=== PATIENT | male | born 1980 | race Caucasian/White ===

== ENCOUNTER → 2019-11-03 15:17 | Outpatient (CLI) | payer OTHER, SELFPAY ==
--- NOTE | 2019-11-03 15:22 | XR_ITS ---
PROCEDURE: XR CHEST 2V CLINICAL HISTORY: COUGH Cough, shortness of air COMPARISON: CXR CHEST(2 VIEWS-NOT PORTABLE) from 07/24/2015 [id number] VIEWS from 09/03/2016 FINDINGS: The cardiomediastinal silhouette and pulmonary vascularity are within normal limits. There is dense consolidation in the right middle lobe consistent with right middle lobe pneumonia. No obvious effusion. An opacity is present in the left perihilar region at measuring 1 cm and could be due to a developing nodule. Follow-up is suggested. Summation artifact or patchy area of pneumonia also is a consideration. No acute bony abnormalities. IMPRESSION: 1. Dense consolidation in the right middle lobe consistent with pneumonia. 2. Left perihilar opacity which could be related to developing nodule, summation artifact, or focal infiltrate. Follow-up recommended. If this persists then, CT with contrast may be needed for further evaluation Dictated by: Jose Rafael Saldana MD 11/03/2019 16:37 Electronically signed by Jose Rafael Saldana MD in [place] 11/03/2019 16:37
== END ==
PROVIDERS: PCP Nurse Practitioner; Visit Provider Nurse Practitioner
DX: R05 Cough (principal)
CPT/HCPCS: 71046

== ENCOUNTER → 2019-12-22 14:59 | Outpatient (CLI) | payer OTHER, SELFPAY ==
[2019-12-22 15:56] LABS: Basophils # 0.1 K/mm3 (0-0.2); Basophils % 0.3 % (0.1-2.0); Chloride 99 mmol/L (98-107); Eosinophils # 0.1 K/mm3 (0.0-0.4); Eosinophils % 0.4 % (0.1-12.0); Hematocrit 44.7 % (42.0-52.0); Hemoglobin 14.8 g/dL (14.1-18.0); Lymphocytes % 13.5 % (10-50); Mean Corpuscular HGB Conc 33.1 g/dL (31.8-35.4); Mean Corpuscular Hemoglobin 29.6 pg (27.0-31.2); Mean Corpuscular Volume 89.3 fl (80-94); Mean Platelet Volume 8.3 fl (7.4-10.4); Monocytes # 1.2 K/mm3 (0.1-1.0); Monocytes % 7.6 % (1.7-9.3); Neutrophils # 11.8 K/mm3 (1.8-7.8); Neutrophils % 78.3 % (37.0-80.0); Platelet Count 320 K/mm3 (142-424); Sodium 137 mmol/L (136-145); White Blood Count 15.1 K/mm3 (4.8-10.8)
[2019-12-22 15:57] LABS: MANUAL DIFFERENTIAL MANUAL DIFFERENTIAL (MANUAL DIFF)
[2019-12-22 15:59] LABS: Alanine Aminotransferase 33 U/L (12-78); Albumin Level 4.6 g/dl (3.5-5.0); Albumin/Globulin Ratio 1.2 (1.1-1.8); Alkaline Phosphatase 98 U/L (38-126); Aspartate Amino Transferase 30 U/L (17-59); Blood Urea Nitrogen 11 mg/dl (9-20); Calcium 9.2 mg/dl (8.4-10.2); Carbon Dioxide 29 mmol/L (22.0-30.0); Estimated Glomerular Filt Rate 83 ml/min (>60); GFR (African American) 101 ML/MIN (>60); Glucose 92 mg/dl (74-100); Total Protein,Serum 8.6 g/dl (6.3-8.2)
[2019-12-22 17:42] LABS: Lymphocytes % 16 % (10-50); Monocytes % 8 % (2-9); Neutrophils % 76 % (42-76); Platelet Estimate Normal; RBC Morphology Normal; Total Cells Counted 100
[2020-01-03 07:25] LABS: Covid-19 Nasal PCR Sendout Lex Not Detected (Not Detected)
--- NOTE | 2020-01-05 09:10 | PC.NURSE ---
0908 Cristin KAMINSKI, NOTIFIED OF NEGATIVE COVID RESULTS 0910 PT NOTIFIED OF NEGATIVE COVID TEST RESULTS
== END ==
PROVIDERS: Visit Provider Nurse Practitioner Family
DX: R50.9 Fever, unspecified (principal); R05 Cough
CPT/HCPCS: 36415; 80053; 85007; 85025

== ENCOUNTER → 2019-12-23 13:55 | Outpatient (CLI) | payer OTHER, SELFPAY ==
--- NOTE | 2019-12-23 14:07 | XR_ITS ---
PROCEDURE: XR CHEST AP CLINICAL HISTORY: COUGH, LEUKOCYTOSIS,FEVER COMPARISON: CXR CHEST(2 VIEWS-NOT PORTABLE) from 07/24/2015 XR CHEST 2V from 11/03/2019 FINDINGS: The cardiomediastinal silhouette and pulmonary vascularity are within normal limits. There is continued consolidation in the right middle lobe consistent with pneumonia which appears somewhat worse. Previously noted opacity in the left perihilar region is not demonstrated on today's exam. No acute bony abnormalities. IMPRESSION: Increasing consolidation in the right middle lobe consistent with worsening pneumonia Dictated by: Jose Rafael Saldana MD 12/23/2019 14:53 Electronically signed by Jose Rafael Sladana MD in [place] 12/23/2019 14:53
== END ==
PROVIDERS: PCP Nurse Practitioner Family; Visit Provider Nurse Practitioner Family
DX: R50.9 Fever, unspecified (principal); R05 Cough; D72.829 Elevated white blood cell count, unspecified
CPT/HCPCS: 71045

== ENCOUNTER → 2020-08-31 15:53 | Outpatient (POV) | payer OTHER, SELFPAY | PROVIDERS: Visit Provider Dermatology | DX: Z00.00 Encounter for general adult medical examination without abnormal findings (principal) ==

== ENCOUNTER 2021-04-02 13:25 | Emergency (ER) | payer OTHER, SELFPAY ==
[2021-04-02 13:40] VITALS: BP 147/95; PULSE 105; RESP 18; TEMP 36.6; O2SAT 97; BMI 33.0
--- NOTE | 2021-04-02 13:42 | HMH.EDUTC ---
[facility] [place] Clinical Impression: Sinusitis Qualifiers: Sinusitis location: maxillary Chronicity: acute Recurrence: non-recurrent Qualified Code(s): J01.00 - Acute maxillary sinusitis, unspecified Disposition: Home, Self-Care Condition on Discharge: Good Instructions: DI for Sinusitis Additional Instructions: Follow up with Dr Ragsdale if not improving Prescriptions: Amoxicillin [Amoxicillin 875MG Tab] 875 mg PO Q12H #20 tab Transmission Status: Pending to [facility] # predniSONE [Prednisone 20mg Tab] 20 mg PO BID 5 Days #10 tab Transmission Status: Pending to [facility] # Referrals: Casper Ragsdale MD [Primary Care Provider] - Time of Disposition: 13:51 Medical Decision Making - Nicholas Inquiry Pt receiving controlled substance: No [facility] [place] - General Stated complaint: drainage,some throat irritation Time Seen by Provider: 04/02/21 13:43 - History of Present Illness Provider Complaint: 3-4 day history of sinus pain/pressure/drainage. No fever. Onset (ago): day(s) (4) Relieving factors: none Exacerbating factors: none Treatments prior to arrival: none - Related Data Previous Rx's Medication Instructions Recorded sulfamethoxazole 800 1 tab PO Q12H 10 Days #20 tab 07/14/20 mg-trimethoprim 160 mg tablet Amoxicillin [Amoxicillin 875MG 875 mg PO Q12H #20 tab 04/02/21 Tab] predniSONE [Prednisone 20mg 20 mg PO BID 5 Days #10 tab 04/02/21 Tab] Allergies Allergy/AdvReac Type Severity Reaction Status Date / Time No Known Allergies Allergy Verified 07/14/20 15:55 [facility] History - Hepatitis A Screen Attestation statement:: This patient has been screened for Hepatitis A risk factors. I have reviewed the patient's past medical history: Yes Medical History: Denies:: Diabetes Mellitus Type 2, Seizures Laterality Cases: Bilateral: Tonsillectomy Other Surgeries: Yes: Other Comment: Pilonidial cyst removal 2009 - Social History Smoking Status: Never smoker Alcohol Intake: current Alcohol Intake Frequency:: holidays/special occasions only Substance Use Type: denies use Occupational Status: employed Household Members: spouse, children Family Hx:: Non-contributory ROS Obtained: Yes All systems reviewed & no additional complaints - ENT Ears, Nose, Mouth, and Throat: Reports sinus pain, Reports sinus pressure Physical Exam - General General appearance: alert, in no apparent distress - Head Head exam: atraumatic, normocephalic, normal inspection - Eye Eye exam: Present: normal appearance, PERRL, EOMI - ENT ENT exam: Present: normal exam, normal oropharynx, mucous membranes moist, TM's normal bilaterally, normal external ear exam - Expanded ENT Exam Nose exam: Present: sinus tenderness Throat exam: Present: other (PND) - Neck Neck exam: Present: normal inspection, full ROM, trachea midline. Absent: meningismus, lymphadenopathy - Chest Chest inspection: Present: normal inspection, symmetric chest wall rise. Absent: tenderness - Respiratory Respiratory exam: Present: normal lung sounds bilaterally. Absent: respiratory distress - Cardiovascular Cardiovascular exam: Present: regular rate, normal rhythm. Absent: JVD - Abdominal Exam Abdominal exam: Present: soft, normal bowel sounds. Absent: distention, tenderness, guarding - Extremities Exam Extremities exam: Present: normal inspection, full ROM, normal capillary refill. Absent: calf tenderness - Back Exam Back exam: Present: normal inspection. Absent: tenderness - Neurological Exam Neurological exam: Present: alert, oriented X3 - Psychiatric Psychiatric exam: Present: normal affect, normal mood - Skin Skin exam: Present: warm, dry, intact, normal color - Lymphatic Lymphatic Findings: no adenopathy
[2021-04-02 13:56] VITALS: BP 139/92; PULSE 98; RESP 16; TEMP 36.6
[2021-04-02 13:56] LABS: UTC Strep Screen (Rapid) Negative (Negative)
== END 2021-04-02 14:00 | disposition home or self-care (01) ==
PROVIDERS: Emergency Provider Physician Assistant; PCP Family Medicine
DX: J01.00 Acute maxillary sinusitis, unspecified (principal)
CPT/HCPCS: 87880; 99202; G0463

== ENCOUNTER → 2021-05-31 16:08 | Outpatient (POV) | payer OTHER, SELFPAY | PROVIDERS: Visit Provider Dermatology | DX: Z00.00 Encounter for general adult medical examination without abnormal findings (principal) ==

== ENCOUNTER 2021-06-06 09:36 | Emergency (ER) | payer OTHER, SELFPAY ==
[2021-06-06 09:40] VITALS: BP 152/96; PULSE 83; RESP 18; TEMP 36.9; O2SAT 96; BMI 33.0
--- NOTE | 2021-06-06 10:39 | HMH.EDUTC ---
[facility] [place] Impression: Sinusitis Qualifiers: Sinusitis location: unspecified location Chronicity: unspecified Qualified Code(s): J32.9 - Chronic sinusitis, unspecified Disposition: Home, Self-Care Condition on Discharge: Good Instructions: Sinusitis, DI for Sinusitis, DI for COVID-19 (Suspected or Confirmed ), Preventing the Spread of Coronavirus Discharge Instructions Additional Instructions: *Monitor Temp, Over the counter Motrin or Tylenol as directed/as needed Tylenol every 4 hours and Motrin every 6 hours (as long as your family doctor has told you that you can take it) for fever or pain. and straight to ER if unable to lower temp less than 101.0 after medication given *Warm salt water gargles may help to soothe the throat *Throat Lozenges *Warm fluids like tea with honey may help to soothe the throat *Sleep elevated *Humidifier/Vaporizer *Bromfed may cause drowsiness. Know how it effects you (your child) before driving, caring for small child, or sending your child to school. Not other antihistamines/allergy medications while taking bromfed Follow up IMMEDIATELY for new or worsening symptoms or no Noticeable improvement over the next 48-72 hours. 911 for difficulty breathing or swallowing You were tested for today for COVID19 your test result should be back in the next 24-48 hours, You was given instructions to check on [facility] for your results if you do not have internet access you may call the [facility] You was given a handout with instructions for Self Quarantine and Self isolation for while you wait on test results and what to do if they are positive If you are positive the Health Dept will be contacting you also Make sure to take your Vitamins Vit. C Vit D and Zinc if you can take them Prescriptions: Brompheniramine/Pseudoephed/Dm [Bromfed Dm Cough Syrup] 5 - 10 ml PO Q46H PRN #200 ml PRN Reason: Cough Transmission Status: Pending to [facility] # methylPREDNISolone [Medrol 4mg tab] 4 mg PO DIRECTED #21 tab Transmission Status: Pending to [facility] # Azithromycin [Z-Shree 250mg Tab] 250 mg PO DIRECTED #6 tab Transmission Status: Pending to [facility] #[id number] Referrals: Casper Ragsdale MD [Primary Care Provider] - As needed Forms: Work/School Release Time of Disposition: 10:57 Medical Decision Making - Nicholas Inquiry Pt receiving controlled substance: No Nicholas was queried for this patient: No Vital Signs: 06/06/21 09:40 Temperature 98.4 F Temperature Source Oral Pulse Rate [Right Brachial] 83 Respiratory Rate 18 Blood Pressure [Right Arm] 152/96 H Blood Pressure Mean [Right Arm] 114 Blood Pressure Source [Right Arm] Automatic Cuff Blood Pressure Position [Right Arm] Sitting 02 Sat by Pulse Oximetry 96 Oxygen Delivery Method Room Air [facility] [place] - General Stated complaint: covid test/symtpoms Time Seen by Provider: 06/06/21 10:39 Mode of Arrival: Ambulatory Source of Information: Patient Limitations: No Limitations Description of Symptoms (Recalled from Triage Doc. by RN): PATIENT C/O SINUS PRESSURE AND LOW-GRADE FEVER THAT STARTED LAST NIGHT. 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
[2021-06-06 10:52] VITALS: BP 152/96; PULSE 83; RESP 18; TEMP 36.9; O2SAT 96
== END 2021-06-06 11:03 | disposition home or self-care (01) ==
PROVIDERS: Emergency Provider Nurse Practitioner; PCP Family Medicine
DX: U07.1 COVID-19 (principal)
CPT/HCPCS: 99202; G0463; U0003

== ENCOUNTER 2021-06-15 09:05 | Emergency (ER) | payer OTHER, SELFPAY ==
[2021-06-15] VITALS (7 sets, daily range): BP systolic 133–160; BP diastolic 80–91; PULSE 57–82; RESP 16–20; TEMP 36.4; O2SAT 94–97; BMI 31.5
--- NOTE | 2021-06-15 09:03 | ECG_ITS ---
APPROVED REPORT Exam: Resting ECG HR:66 bpm ECG Measurements Heart Rate 66 AXES KS 152 P 46 QRSd 96 QRS 35 QT 402 T 25 QTc 421 Conclusion Normal sinus rhythm Normal ECG Electronically signed by : Casper Webb MD 06/15/2021 20:40:30
--- NOTE | 2021-06-15 09:09 | XR_ITS ---
PROCEDURE: XR CHEST PORTABLE CLINICAL HISTORY: covid COMPARISON: CR CXR CHEST(2 VIEWS-NOT PORTABLE) from 07/24/2015 CR XR CHEST 2V from 11/03/2019 CR XR CHEST AP from 12/23/2019 FINDINGS: The cardiomediastinal silhouette and pulmonary vascularity are within normal limits. There is an area of consolidation in the right infrahilar region. The remaining lungs are clear. No acute bony abnormalities. IMPRESSION: Parenchymal opacity in the right infrahilar region 6 x 2 cm. This could be due to an area atelectatic change or scarring as the patient had a right middle lobe pneumonia on an older study of 12/23/2019. No follow-up images are available since that exam. An area of pneumonia or even neoplasm would be included in the differential diagnosis. This finding is not typical for Covid19 pneumonia. Otherwise negative Dictated by: Jose Rafael Saldana MD 06/15/2021 09:41 Jose Rafael Saldana MD in [place] 06/15/2021 09:41
--- NOTE | 2021-06-15 09:10 | HMH.EDGENADL ---
ED Disposition Clinical Impression: COVID, Palpitations Disposition: Home, Self-Care Condition on Discharge: Good Referrals: Casper Ragsdale MD [Primary Care Provider] - 3 days Time of Disposition: 10:01 - Critical Care Critical Care Time: No Attestation: On , the high probability of a clinically significant, sudden or life threatening deterioration of the following system(s) required my full and direct attention, intervention and personal management. The time I documented below is in addition to time spent performing reported procedures but includes the following listed in this critical care notation. Medical Decision Making - Medical Records Medical records reviewed: Yes: I reviewed the patient's medical records. - Nicholas Inquiry Pt receiving controlled substance: No Vital Signs: 06/15/21 09:05 06/15/21 09:30 06/15/21 10:00 Temperature 97.6 F Temperature Source Oral Pulse Rate 64 59 L Pulse Rate [Right Radial] 73 Respiratory Rate 16 18 20 Blood Pressure 141/88 H 146/80 H Blood Pressure [Right Arm] 160/91 H Blood Pressure Mean 105 98 Blood Pressure Mean [Right Arm] 114 Blood Pressure Source [Right Arm] Automatic Cuff Blood Pressure Position [Right Arm] Sitting 02 Sat by Pulse Oximetry 97 95 94 L Oxygen Delivery Method Room Air 06/15/21 10:30 06/15/21 11:00 06/15/21 11:30 Temperature Temperature Source Pulse Rate 62 57 L 66 Pulse Rate [Right Radial] Respiratory Rate 19 18 16 Blood Pressure 141/87 H 139/89 133/89 Blood Pressure [Right Arm] Blood Pressure Mean 105 99 100 Blood Pressure Mean [Right Arm] Blood Pressure Source [Right Arm] Blood Pressure Position [Right Arm] 02 Sat by Pulse Oximetry 96 96 96 Oxygen Delivery Method - Lab Data Lab Results 06/15/21 09:20: WBC 1.8 L*, RBC 7.88 H, Hgb 24.3 H*, Hct 72.6 H*, MCV 92.2, MCH 30.8, MCHC 33.5, RDW 12.4, Plt Count 75 L, MPV 6.6 L, Neut % (Auto) 49.7, Lymph % (Auto) 42.9, [place] % (Auto) 5.8, Eos % (Auto) 0.6, Baso % (Auto) 1.0, Neut # (Auto) 0.9 L*, Lymph # (Auto) 0.8, [place] # (Auto) 0.1, Eos # (Auto) 0.0, Baso # (Auto) 0.0 06/15/21 09:20: Sodium 137, Potassium 4.1, Chloride 100, Carbon Dioxide 29, Anion Gap 12.1, BUN 8 L, Creatinine 0.90, Estimated Creat Clear 154, Estimated GFR 93, Est GFR ( Amer) 113, Glucose 104 H, Calcium 8.8, Total Bilirubin 0.6, AST 46, ALT 65, Alkaline Phosphatase 125, Troponin I < 0.01, Total Protein 8.2, Albumin 4.3, Globulin 3.9 H, Albumin/Globulin Ratio 1.1 06/15/21 11:23: WBC 4.3 L D, RBC 4.95 D, Hgb 14.8 D, Hct 44.8, MCV 90.5, MCH 30.3, MCHC 33.5, RDW 12.2, Plt Count 296 D, MPV 6.8 L, Neut % (Auto) 61.8, Lymph % (Auto) 29.1, [place] % (Auto) 7.4, Eos % (Auto) 1.0, Baso % (Auto) 0.7, Neut # (Auto) 2.7, Lymph # (Auto) 1.3, [place] # (Auto) 0.3, Eos # (Auto) 0.0, Baso # (Auto) 0.0 Result diagrams: 06/15/21 11:23 06/15/21 09:20 Orders (Tests/Meds): ORDERS Category Date Time Status Peripheral Smear Review Stat Lab 06/15/21 11:23 Received Troponin I Q3H Lab 06/15/21 12:15 Ordered Troponin I Q3H Lab 06/15/21 15:15 Ordered - Radiology Data #1 Image(s): Chest Image Reviewed: Yes I reviewed the patient's radiology results Preliminary Findings: Abnormal Parenchymal opacity in the right infrahilar region 6 x 2 cm. This could be due to an area atelectatic change or scarring as the patient had a right middle lobe pneumonia on an older study of 12/23/2019. No follow-up images are available since that exam. An area of pneumonia or even neoplasm would be included in the differential diagnosis. This finding is not typical for Covid19 pneumonia. Otherwise negative - ECG Data Tracing #1 I reviewed this ECG and interpreted as documented below: Normal sinus rhythm, 66 bpm, no ST elevation or depression, no ectopy, normal intervals. ECG initial impression date: 06/15/21 ECG initial impression time: 09:06 Medical Decision Narrative: 40yo M evaluated fo
[2021-06-15 09:40] LABS: Alanine Aminotransferase 65 U/L (12-78); Albumin Level 4.3 g/dl (3.5-5.0); Albumin/Globulin Ratio 1.1 (1.1-1.8); Alkaline Phosphatase 125 U/L (38-126); Anion Gap 12.1 mEq/L (5-15); Aspartate Amino Transferase 46 U/L (17-59); Bilirubin,Total 0.6 mg/dl (0.2-1.3); Blood Urea Nitrogen 8 mg/dl (9-20); Calcium 8.8 mg/dl (8.4-10.2); Carbon Dioxide 29 mmol/L (22.0-30.0); Chloride 100 mmol/L (98-107); Creatinine Clearance Estimated 154 mL/min (50-200); Estimated Glomerular Filt Rate 93 ml/min (>60); GFR (African American) 113 ML/MIN (>60); Globulin 3.9 g/dL (1.3-3.2); Glucose 104 mg/dl (74-100); Potassium 4.1 mmoL/L (3.5-5.1); Sodium 137 mmol/L (136-145); Total Protein,Serum 8.2 g/dl (6.3-8.2)
[2021-06-15 09:52] LABS: Troponin I < 0.01 ng/ml (0.00-0.034)
[2021-06-15 10:00] LABS: Eosinophils % 0.6 % (0.1-12.0); Lymphocytes # 0.8 K/mm3 (0.7-4.5); Lymphocytes % 42.9 % (10-50); Mean Corpuscular HGB Conc 33.5 g/dL (31.8-35.4); Mean Corpuscular Hemoglobin 30.8 pg (27.0-31.2); Mean Corpuscular Volume 92.2 fl (80-94); Mean Platelet Volume 6.6 fl (7.4-10.4); Monocytes # 0.1 K/mm3 (0.1-1.0); Monocytes % 5.8 % (1.7-9.3); Neutrophils # 0.9 K/mm3 (1.8-7.8); Neutrophils % 49.7 % (37.0-80.0); Platelet Count 75 K/mm3 (142-424); Red Cell Distribution Width 12.4 % (11.5-17.5); White Blood Count 1.8 K/mm3 (4.8-10.8)
[2021-06-15 10:25] LABS: Hematocrit 72.6 % (42.0-52.0); Red Blood Count 7.88 M/mm3 (4.60-6.20)
[2021-06-15 10:58] LABS: Hemoglobin 24.3 g/dL (14.1-18.0)
[2021-06-15 11:28] LABS: Basophils % 0.7 % (0.1-2.0); Hematocrit 44.8 % (42.0-52.0); Lymphocytes # 1.3 K/mm3 (0.7-4.5); Lymphocytes % 29.1 % (10-50); Mean Corpuscular HGB Conc 33.5 g/dL (31.8-35.4); Mean Corpuscular Hemoglobin 30.3 pg (27.0-31.2); Mean Corpuscular Volume 90.5 fl (80-94); Mean Platelet Volume 6.8 fl (7.4-10.4); Monocytes # 0.3 K/mm3 (0.1-1.0); Monocytes % 7.4 % (1.7-9.3); Neutrophils # 2.7 K/mm3 (1.8-7.8); Neutrophils % 61.8 % (37.0-80.0); Platelet Count 296 K/mm3 (142-424); Red Blood Count 4.95 M/mm3 (4.60-6.20); Red Cell Distribution Width 12.2 % (11.5-17.5); White Blood Count 4.3 K/mm3 (4.8-10.8)
[2021-06-15 11:46] LABS: Hemoglobin 14.8 g/dL (14.1-18.0)
[2021-06-17 11:24] LABS: Peripheral Smear Review Scanned Result
== END 2021-06-15 13:06 | disposition home or self-care (01) ==
PROVIDERS: Emergency Provider Family Medicine; PCP Family Medicine
DX: U07.1 COVID-19 (principal); R43.9 Unspecified disturbances of smell and taste; R00.2 Palpitations
CPT/HCPCS: 71045; 80053; 84484; 85025; 93005; 99283

== ENCOUNTER 2022-03-03 19:08 | Emergency (ER) | payer OTHER, SELFPAY ==
--- NOTE | 2022-03-03 20:10 | HMH.EDUTC ---
[facility] [place] Impression: Right arm cellulitis Insect bite of right upper arm with infection Qualifiers: Encounter type: initial encounter Qualified Code(s): S40.861A - Insect bite (nonvenomous) of right upper arm, initial encounter Disposition: Home, Self-Care Condition on Discharge: Good Instructions: Cellulitis Additional Instructions: Keep the affected area clean and dry. Follow up with your regular doctor. Take the antibiotics as directed and apply the topical antibiotics as directed. Apply warm wet compresses to the affected area three or four times per day. GO TO THE ER FOR ANY WORSENING SYMPTOMS Follow up with your primary care physician for a wound recheck in 48 hours. Prescriptions: Sulfamethoxazole/Trimethoprim [Bactrim DS tablet] 1 each PO BID 10 Days #20 tab Transmission Status: Received by [facility] #[id number] Mupirocin [Bactroban 2% Ointment 22gm tube] 1 applicatio TP TID 7 Days #1 gm Transmission Status: Received by [facility] #[id number] cephALEXin [cephALEXin 500mg capsule] 500 mg PO Q6H 10 Days #40 cap Transmission Status: Received by [facility] #[id number] Referrals: Kalina Siegel APRN [Primary Care Provider] - Forms: Work/School Release Time of Disposition: 20:39 Medical Decision Making - Medical Records Medical records reviewed: No: I reviewed the patient's medical records. - Nicholas Inquiry Pt receiving controlled substance: No Vital Signs: 03/03/22 20:23 03/03/22 20:57 Temperature 97.6 F 97.6 F Temperature Source Oral Pulse Rate 64 Pulse Rate [Left Radial] 64 Respiratory Rate 17 17 Blood Pressure 123/87 Blood Pressure [Right Arm] 123/87 Blood Pressure Mean [Right Arm] 99 02 Sat by Pulse Oximetry 99 Orders (Tests/Meds): ED MEDICATIONS Discontinued Medications Generic Name Dose Route Start Last Admin Trade Name Freq PRN Reason Stop Dose Admin Ceftriaxone Sodium 1 gm 03/03/22 20:31 03/03/22 20:36 Ceftriaxone 1gm Vial IM 03/03/22 20:32 1 gm ONCE ONE Administration Lidocaine HCl 0 ml 03/03/22 20:31 03/03/22 20:36 Lidocaine 1% 5ml Pf Vial IM 03/03/22 20:32 2 ml ONCE ONE Administration [facility] [place] - General Stated complaint: possible spider bite Time Seen by Provider: 03/03/22 20:10 - History of Present Illness Provider Complaint: He has a red area on the inside of his right arm that started to develope 2 days ago. It has an open area in its center. He denies any fever or chills. He states that this started after he mowed his grass and a bug bit him on his arms. He has had a similar reaction to a bug bite about 10 years ago that got infected and he had to take a rocephin shot and oral antibiotics to get better. He is not a diabetic. - Related Data Previous Rx's Medication Instructions Recorded sulfamethoxazole 800 1 tab PO Q12H 10 Days #20 tab 07/14/20 mg-trimethoprim 160 mg tablet Amoxicillin [Amoxicillin 875MG 875 mg PO Q12H #20 tab 04/02/21 Tab] predniSONE [Prednisone 20mg 20 mg PO BID 5 Days #10 tab 04/02/21 Tab] Azithromycin [Z-Shree 250mg Tab] 250 mg PO DIRECTED #6 tab 06/06/21 Brompheniramine/Pseudoephed/Dm 5 - 10 ml PO Q46H PRN #200 ml 06/06/21 [Bromfed Dm Cough Syrup] methylPREDNISolone [Medrol 4mg 4 mg PO DIRECTED #21 tab 06/06/21 tab] Mupirocin [Bactroban 2% Ointment 1 applicatio TP TID 7 Days #1 gm 03/03/22 22gm tube] Sulfamethoxazole/Trimethoprim 1 each PO BID 10 Days #20 tab 03/03/22 [Bactrim DS tablet] cephALEXin [cephALEXin 500mg 500 mg PO Q6H 10 Days #40 cap 03/03/22 capsule] Allergies Allergy/AdvReac Type Severity Reaction Status Date / Time No Known Allergies Allergy Verified 03/03/22 20:25 [facility] History - Hepatitis A Screen Attestation statement:: This patient has been screened for Hepatitis A risk factors. I have reviewed the patient's past medical history: Yes Medical History: D
[2022-03-03 20:23] VITALS: BP 123/87; PULSE 64; RESP 17; TEMP 36.4; O2SAT 99; BMI 31.2
[2022-03-03 20:57] VITALS: BP 123/87; PULSE 64; RESP 17; TEMP 36.4
== END 2022-03-03 20:57 | disposition home or self-care (01) ==
PROVIDERS: Emergency Provider Nurse Practitioner Family; PCP Nurse Practitioner Family
DX: L03.113 Cellulitis of right upper limb (principal); S40.861A Insect bite (nonvenomous) of right upper arm, initial encounter
CPT/HCPCS: 96372; 99212; G0463; J0696

== ENCOUNTER 2022-09-03 09:54 | Emergency (ER) | payer OTHER, SELFPAY ==
--- NOTE | 2022-09-03 10:36 | EXP.UTC ---
Discharge Plan Disposition Patient Disposition: Home, Self-Care Condition: Good Prescriptions Prescriptions: New azithromycin [Zithromax] 250 mg tablet 250 mg PO UD DOSE PK Qty: 6 0RF Rx Instructions: Take two (2) tablets today, then one (1) tablet days #2 thru #5 benzonatate [benzonatate] 100 mg capsule 100 mg PO TIDP PRN (Reason: Cough) Qty: 30 0RF oseltamivir [Tamiflu] 75 mg capsule 75 mg PO BID Qty: 10 0RF methylprednisolone 4 mg Tablets,Dose Pack 4 mg PO DIRECTED Qty: 21 0RF No Action sulfamethoxazole-trimethoprim 800-160 mg tablet 1 tab PO Q12H 10 Days Qty: 20 0RF prednisone 20 MG tablet 20 mg PO BID 5 Days Qty: 10 0RF amoxicillin 875 MG tablet 875 mg PO Q12H Qty: 20 0RF sulfamethoxazole-trimethoprim 1 EACH tablet 1 each PO BID 10 Days Qty: 20 0RF cephalexin 500 MG capsule 500 mg PO Q6H 10 Days Qty: 40 0RF mupirocin 22 GM ointment 1 applicatio TP TID 7 Days Qty: 1 0RF azithromycin 250 MG tablet 250 mg PO DIRECTED Qty: 6 0RF Rx Instructions: Take two (2) tablets on day #1, then one (1) tablet day #2 thru #5 methylprednisolone 4 MG tablet 4 mg PO DIRECTED Qty: 21 0RF Rx Instructions: Take as directed on package instructions [id number] 118 ML syrup 5 - 10 ml PO Q46H PRN (Reason: Cough) Qty: 200 0RF Referrals Follow up/Referrals: Casper Webb MD [Primary Care Provider] - See instructions Activity Restrictions/Add. Instructions Additional Instructions/Restrictions: Drink plenty of fluids. Take tylenol or ibuprofen for pain or fever. Take the medications as directed. Follow up with your regular doctor. GO TO THE ER FOR ANY WORSENING SYMPTOMS Clinical Impressions Clinical Impression: Influenza A Stand Alone Forms Stand Alone Forms: Work/School Release Instructions Patient Instructions: DI for Influenza -- Adult Discharge ED Provider: [facility] General Stated complaint: Cough,Fever,Congestion,Bodyaches Time Seen by Provider: 09/03/22 10:36 History of Present Illness Provider Complaint: He states that he has had fever, chills, body aches, fatigue and cough for the past 2 days. Related Data Previous Rx's Medication Instructions Recorded sulfamethoxazole 800 1 tab PO Q12H skin infection 10 07/14/20 mg-trimethoprim 160 mg tablet days #20 tabs amoxicillin 875 mg tablet 875 mg PO Q12H #20 tabs 04/02/21 prednisone 20 mg tablet 20 mg PO BID 5 days #10 tabs 04/02/21 azithromycin 250 mg tablet 250 mg PO DIRECTED #6 tabs 06/06/21 clljjbidfkgmngu-lqgdqpranozekex-DL 5 - 10 ml PO Q46H PRN Cough #200 mL 06/06/21 2 mg-30 mg-10 mg/5 mL oral syrup methylprednisolone 4 mg tablet 4 mg PO DIRECTED #21 tabs 06/06/21 cephalexin 500 mg capsule 500 mg PO Q6H 10 days #40 caps 03/03/22 mupirocin 2 % topical ointment 1 applicatio topical TID 7 days ##1 03/03/22 sulfamethoxazole 800 1 each PO BID 10 days #20 tabs 03/03/22 mg-trimethoprim 160 mg tablet azithromycin 250 mg tablet 250 mg PO UD DOSE PK #6 tabs 09/03/22 (Zithromax) benzonatate 100 mg capsule 100 mg PO TIDP PRN Cough #30 caps 09/03/22 methylprednisolone 4 mg tablets in 4 mg PO DIRECTED #21 tabs 09/03/22 a dose pack oseltamivir 75 mg capsule (Tamiflu) 75 mg PO BID #10 caps 09/03/22 Allergies Allergy/AdvReac Type Severity Reaction Status Date / Time No Known Allergies Allergy Verified 09/03/22 10:50 [facility] Disclaimer: The information contained in this section may have been updated after the patient was seen, as this information can be updated by other users. Social History Smoking Status: Never smoker alcohol intake: current substance use type: denies use current occupational status: employed Travel in the last 8 weeks: None household members: spouse and children ROS Obtained: Yes All systems reviewed & no additio
[2022-09-03 10:48] VITALS: BP 127/85; PULSE 107; RESP 16; TEMP 37.2; O2SAT 96; BMI 31.2
[2022-09-03 10:53] LABS: UTC Strep Screen (Rapid) Negative (Negative)
[2022-09-03 10:54] LABS: UTC Influenza A Antigen Positive (Negative); UTC Influenza B Antigen Negative (Negative)
[2022-09-03 11:29] VITALS: BP 127/85; PULSE 107; RESP 16; TEMP 37.2
== END 2022-09-03 11:32 | disposition home or self-care (01) ==
PROVIDERS: Emergency Provider Nurse Practitioner Family; PCP Internal Medicine Adolescent Medicine
DX: J10.1 Influenza due to other identified influenza virus with other respiratory manifestations (principal)
CPT/HCPCS: 87804; 87880; 99212; G0463

== ENCOUNTER → 2023-01-16 16:23 | Outpatient (POV) | payer OTHER, SELFPAY | PROVIDERS: Visit Provider Dermatology | DX: Z00.00 Encounter for general adult medical examination without abnormal findings (principal) ==

== ENCOUNTER → 2023-08-07 15:45 | Outpatient (CLI) | payer OTHER, SELFPAY ==
[2023-08-07 16:34] LABS: Chol/HDL Ratio 7.9 (1-3.5); Cholesterol 236 mg/dl (140-200); HDL Cholesterol 30 mg/dl (40-60); Triglycerides 135 mg/dl (30-150); VLDL Cholesterol 27 mg/dL (0-40)
[2023-08-07 16:45] LABS: Direct LDL Cholesterol 154.77 mg/dL (100-129)
[2023-08-07 16:50] LABS: Free T4 (Free Thyroxine) 0.87 ng/dl (0.78-2.19)
[2023-08-07 17:03] LABS: Thyroid Stimulating Hormone 4.37 uIU/mL (0.465-4.68)
== END ==
PROVIDERS: PCP Internal Medicine Adolescent Medicine; Visit Provider Internal Medicine Adolescent Medicine
DX: Z00.00 Encounter for general adult medical examination without abnormal findings (principal); R53.83 Other fatigue; R94.6 Abnormal results of thyroid function studies
CPT/HCPCS: 36415; 80061; 84439; 84443

== ENCOUNTER 2023-11-14 18:23 | Emergency (ER) | payer BC, SELFPAY ==
[2023-11-14 19:20] VITALS: BP 141/92; PULSE 71; RESP 18; TEMP 36.8; O2SAT 98; BMI 33.4
--- NOTE | 2023-11-14 19:36 | EXP.UTC ---
Discharge Plan Disposition Patient Disposition: Home, Self-Care Condition: Good Prescriptions Prescriptions: New levofloxacin [levofloxacin] 500 mg tablet 500 mg PO DAILY Qty: 7 0RF mupirocin 2 % ointment 1 applic topical TID 7 Days Qty: 15 0RF benzonatate [benzonatate] 100 mg capsule 100 mg PO TIDP PRN (Reason: Cough) Qty: 30 0RF Referrals Follow up/Referrals: Casper Webb MD [Primary Care Provider] - See instructions Activity Restrictions/Add. Instructions Additional Instructions/Restrictions: Drink plenty of fluids. Take tylenol or ibuprofen for pain or fever. Take the medications as directed. Follow up with your regular doctor. GO TO THE ER FOR ANY WORSENING SYMPTOMS Clinical Impressions Clinical Impression: Acute viral syndrome, Bronchitis, Pleurisy Stand Alone Forms Stand Alone Forms: Work/School Release Instructions Patient Instructions: DI for Acute Bronchitis, DI for Pleurisy, DI for Viral Syndrome, Levofloxacin Discharge ED Provider: Kt Hylton [facility] [place], [place] General Stated complaint: exposed to flu-weak,body aches Time Seen by Provider: 11/14/23 19:35 History of Present Illness Provider Complaint: He states that for the past 3 days he has had worsening fatigue, thoracic back pain with coughing and deep breathing, malaise, low grade fever, and weakness. He has been exposed to influenza b. He states that in the past he has had pneumonia that started just like this. Related Data Previous Rx's Medication Instructions Recorded benzonatate 100 mg capsule 100 mg PO TIDP PRN Cough #30 caps 11/14/23 levofloxacin 500 mg tablet 500 mg PO DAILY #7 tabs 11/14/23 mupirocin 2 % topical ointment 1 applic topical TID 7 days #15 11/14/23 grams Allergies Allergy/AdvReac Type Severity Reaction Status Date / Time No Known Allergies Allergy Verified 11/14/23 19:43 [facility] Disclaimer: The information contained in this section may have been updated after the patient was seen, as this information can be updated by other users. Social History Smoking Status: Never smoker alcohol intake: current substance use type: denies use current occupational status: employed Travel in the last 8 weeks: None household members: spouse and children ROS Obtained: Yes All systems reviewed & no additional complaints except as documented Constitutional Constitutional: Reports poor appetite Eyes Eyes: Reports system reviewed and no additional complaints, except as documented ENT Ears, Nose, Mouth, and Throat: Reports as per HPI and Denies neck pain Cardiovascular Cardiovascular: Reports system reviewed and no additional complaints, except as documented and Denies chest pain Respiratory Respiratory: Denies shortness of breath, Reports chest congestion, Reports cough, Denies stridor and Denies wheezing Gastrointestinal Gastrointestingal: Reports system reviewed and no additional complaints, except as documented; Denies abdominal pain, diarrhea or vomiting Genitourinary Male Genitourinary: Denies difficulty urinating and Denies urinary frequency Musculoskeletal Musculoskeletal: Reports as per HPI, Reports back pain and Denies neck pain Integumentary/Breasts Skin/Breast: Reports system reviewed and no additional complaints, except as documented and Denies rash Neurologic Neurologic: Denies paresthesias Allergic/Immunologic Allergic/Immunologic: Denies wheezing Physical Exam General General appearance: alert and in no apparent distress Eye Eye exam: Present normal appearance, PERRL and EOMI ENT ENT exam: Present mucous membranes moist and normal external ear exam Expanded ENT Exam External ear exam: Present normal external inspection TM/Canal exam: Bilateral TM: erythema and bulging Nose exam: Absent sinus tenderness Nasal speculum exam: Bilateral: normal Mouth exam: Present normal external inspection; Absent drooling Teeth exam: Present normal inspection Throat exam: Present tonsillar erythema and tonsillomegaly Neck Neck exam: Present normal inspection, full ROM and trachea midline; Absent tenderness, lymphadenopathy or thyromegaly Chest Chest inspection: Present normal inspection and symmetric chest wall rise; Absent tenderness or rash Respiratory Respiratory exam: Present normal lung sounds bilaterally; Absent respiratory distress, wheezes, stridor or accessory muscle use Cardiovascular Cardiovascular exam: Present regular rate, normal rhythm and normal heart sounds Abdominal Exam Abdominal exam: Present soft; Absent distention, tenderness, guarding, rebound or rigidity Extremities Exam Extremities exam: Present normal inspection, full ROM and normal capillary refill; Absent tenderness or calf tenderness Back Exam Back exam: Present normal inspection and full ROM; Absent tenderness Neurological Exam Neurological exam: Present alert and oriented X3 Psychiatric Psychiatric exam: Present normal affect and normal mood Skin Skin exam: Present warm, dry, intact and normal color Lymphatic Lymphatic Findings: no adenopathy Medical Decision Making Medical Records Medical records reviewed: No I reviewed the patient's medical records. Nicholas Prather Pt receiving controlled substance: No Lab Data Lab results reviewed: Yes I reviewed the patient's lab results.
[2023-11-14 20:05] LABS: UTC Influenza A Antigen Negative (Negative); UTC Strep Screen (Rapid) Negative (Negative)
[2023-11-14 20:06] LABS: UTC Influenza B Antigen Negative (Negative)
[2023-11-14 20:09] VITALS: BP 141/92; PULSE 71; RESP 18; TEMP 36.8; O2SAT 98
[2023-11-14 20:16] LABS: Adenovirus,PCR Not Detected (NotDetected); Coronavirus 19, PCR Not Detected (NotDetected); Coronavirus 229E Not Detected (NotDetected); Coronavirus NL63 Not Detected (NotDetected); Coronavirus OC43 Not Detected (NotDetected); Coronovirus HKU1,PCR Not Detected (NotDetected); Human Metapneumovirus Not Detected (NotDetected); Influenza A, PCR Not Detected (NotDetected); Influenza AH1, 2009 Not Detected (NotDetected); Influenza AH1, PCR Not Detected (NotDetected); Influenza AH3,PCR Not Detected (NotDetected); Influenza B, PCR Not Detected (NotDetected); Parainfluenza 1, PCR Not Detected (NotDetected); Parainfluenza 2, PCR Not Detected (NotDetected); Parainfluenza 3, PCR Not Detected (NotDetected); Parainfluenza 4, PCR Not Detected (NotDetected); Respiratory Syncytial Virus Not Detected (NotDetected); Rhinovirus/Enterovirus Not Detected (NotDetected)
== END 2023-11-14 20:09 | disposition home or self-care (01) ==
PROVIDERS: Emergency Provider Nurse Practitioner Family; PCP Internal Medicine Adolescent Medicine
DX: R09.1 Pleurisy (principal); J20.9 Acute bronchitis, unspecified; R07.1 Chest pain on breathing; R50.9 Fever, unspecified; R05.9 Cough, unspecified; R53.83 Other fatigue
CPT/HCPCS: 87632; 87635; 87804; 87880; 99212; 99214; G0463

== ENCOUNTER 2023-11-18 15:15 | Emergency (ER) | payer BC, SELFPAY ==
[2023-11-18 15:24] VITALS: BP 157/92; PULSE 77; O2SAT 99
[2023-11-18 15:27] VITALS: BP 157/92; PULSE 74; RESP 18; TEMP 36.9; O2SAT 99; BMI 31.4
--- NOTE | 2023-11-18 15:29 | HMH.EDGENADL ---
Discharge Plan Prescriptions Prescriptions: No Action levofloxacin [levofloxacin] 500 mg tablet 500 mg PO DAILY Qty: 7 0RF mupirocin 2 % ointment 1 applic topical TID 7 Days Qty: 15 0RF benzonatate [benzonatate] 100 mg capsule 100 mg PO TIDP PRN (Reason: Cough) Qty: 30 0RF Referrals Follow up/Referrals: Casper Webb MD [Primary Care Provider] - See instructions Discharge ED Provider: Lili Callaway General Adult HPI General Stated complaint: pain in sides and back, abdominal tenderness, fati Time Seen by Provider: 11/18/23 15:23 Related Data Previous Rx's Medication Instructions Recorded benzonatate 100 mg capsule 100 mg PO TIDP PRN Cough #30 caps 11/14/23 levofloxacin 500 mg tablet 500 mg PO DAILY #7 tabs 11/14/23 mupirocin 2 % topical ointment 1 applic topical TID 7 days #15 11/14/23 grams Allergies Allergy/AdvReac Type Severity Reaction Status Date / Time No Known Allergies Allergy Verified 11/14/23 19:43 [facility] Disclaimer: The information contained in this section may have been updated after the patient was seen, as this information can be updated by other users. Social History Smoking Status: Never smoker alcohol intake: current substance use type: denies use current occupational status: employed Travel in the last 8 weeks: None household members: spouse and children ROS Obtained: Yes Systems reviewed as appropriate & no additional complaints except as documented Physical Exam General General appearance: alert and in no apparent distress Head Head exam: atraumatic and normal inspection Eye Eye exam: Present normal appearance, PERRL and EOMI ENT ENT exam: Present normal exam, normal oropharynx and mucous membranes moist Neck Neck exam: Present normal inspection, full ROM and trachea midline; Absent lymphadenopathy Chest Chest inspection: Present normal inspection and symmetric chest wall rise Respiratory Respiratory exam: Present normal lung sounds bilaterally; Absent accessory muscle use Cardiovascular Cardiovascular exam: Present regular rate, normal rhythm, normal heart sounds, +S1 and +S2 Abdominal Exam Abdominal exam: Present soft and normal bowel sounds; Absent tenderness, guarding or rebound Extremities Exam Extremities exam: Present normal inspection and full ROM Neurological Exam Neurological exam: Present alert, oriented X3 and CN II-XII intact Psychiatric Psychiatric exam: Present normal affect and normal mood Skin Skin exam: Present warm, dry and normal color Lymphatic Lymphatic Findings: no adenopathy Medical Decision Making Medical Decision Narrative: In summary patient is a [age, sex] who presents to the emergency department for evaluation of [complaint]. Patient is [hemodynamically stable/unstable] upon arrival, [febrile/afebrile]. [Unremarkable physical exam, nonfocal exam versus focal remarkable exam]. Differential diagnosis includes [DDx]. Initial workup will be conducted with [hematologic labs, imaging, respiratory swab, describe workup]. Initial interventions include [crystalloid bolus, medications, p.o. challenge, etc.] initial workup reviewed by me [hematologic labs are remarkable for... Imaging remarkable for... Urinalysis remarkable for]. Upon repeat evaluation [patient had acceptable resolution of symptoms, had persistent pain for which additional interventions were conducted (describe interventions), tolerated p.o., was ambulatory, etc.]. Given this [patient is appropriate for discharge at this time and will be discharged with a prescription for... The case was discussed with hospital medicine regarding management and they will admit the patient their service for continued evaluation at this time... Etc.] Places where you can increase complexity: I informally interpreted the patient's chest x-ray or CT read and is remarkable for... Documenting what the lunchroom monitor shows with rate and rhythm Consideration of test but deferring. Ex: I considered chest x-ray on this patient however given that they have no oxygen requirement and are clear to auscultation all lung connelly will be deferred. Social determinants of health: Given that patient is undomiciled increases complexity. Given that patient has polysubstance abuse compounds all aspects of care
--- NOTE | 2023-11-18 15:36 | CT_ITS ---
PROCEDURE INFORMATION: Exam: CT Abdomen And Pelvis With Contrast Exam date and time: 11/18/2023 3:47 PM Age: 43 years old Clinical indication: Abdominal pain; Flank; Other: Bilateral; Additional info: Bilateral flank pain, radiating into abd non focal TECHNIQUE: Imaging protocol: Computed tomography of the abdomen and pelvis with contrast. Radiation optimization: All CT scans at this facility use at least one of these dose optimization techniques: automated exposure control; mA and/or kV adjustment per patient size (includes targeted exams where dose is matched to clinical indication); or iterative reconstruction. Contrast material: ISOVUE; Contrast volume: 75 ml; Contrast route: IV; COMPARISON: CR XR CHEST PORTABLE 06/15/2021 9:19 AM FINDINGS: Lungs: Included lung bases demonstrate no consolidation. Right middle lobe 6 mm subpleural nodule. Liver: Liver is normal. No lesions. Gallbladder and bile ducts: Gallbladder is normal. No calcified stones. No ductal dilatation. Pancreas: Pancreas is normal. No ductal dilatation. Spleen: Spleen is normal. Adrenal glands: Adrenal glands are normal. No mass. Kidneys and ureters: Symmetric enhancement with no renal mass. There is a 5 mm non-obstructing stone in the right kidney and two 3 mm non-obstructing stones in the left kidney. No hydronephrosis or hydroureter. Stomach and bowel: No evidence of bowel obstruction or acute bowel abnormality. Mild colonic diverticulosis without evidence of diverticulitis. Appendix: No evidence of appendicitis. Intraperitoneal space: No free air. No significant fluid collection. Vasculature: No acute abnormality. No abdominal aortic aneurysm. Pelvic phleboliths. Lymph nodes: No enlarged lymph nodes. Urinary bladder: Urinary bladder is unremarkable for degree of distention. Reproductive: Unremarkable as visualized. Bones/joints: No acute osseous abnormality or suspicious osseous lesion. Mild multilevel degenerative changes of the included spine. Soft tissues: Very small fat containing umbilical hernia. IMPRESSION: 1. Few small non-obstructing bilateral renal stones. No hydronephrosis or hydroureter. 2. Mild colonic diverticulosis. No evidence of acute bowel abnormality. 3. Right middle lobe 6 mm subpleural nodule. For patients at low risk (minimal or absent history of smoking and of other known risk factors), recommend CT Chest at 3-6 months, then consider CT Chest at 18-24 months. For patients at high risk (history of smoking or of other known risk factors), recommend CT Chest at 3-6 months, then CT Chest at 18-24 months. (Reference: Olvin)
[2023-11-18 15:40] VITALS: BP 164/94; PULSE 68; O2SAT 98
[2023-11-18] MEDS: LACTATED RINGERS 1000ML 1,000 ML 999 ML IV (15:41)
[2023-11-18] MEDS: KETOROLAC 30MG/ML VIAL 15 MG IV (15:42)
[2023-11-18] MEDS: ONDANSETRON 4MG/2ML VIAL 4 MG IV (15:42)
[2023-11-18 15:43] LABS: Microscopic, Urine URINE MICROSCOPIC (MICROSCOPIC)
[2023-11-18 15:47] LABS: Basophils # 0.1 K/mm3 (0-0.2); Basophils % 0.5 % (0.1-2.0); Chloride 103 mmol/L (98-107); Eosinophils # 0.1 K/mm3 (0.0-0.4); Eosinophils % 0.8 % (0.1-12.0); Hematocrit 45.6 % (42.0-52.0); Hemoglobin 15.9 g/dL (14.1-18.0); Lymphocytes # 2.5 K/mm3 (0.7-4.5); Lymphocytes % 26.2 % (10-50); Mean Corpuscular HGB Conc 34.9 g/dL (31.8-35.4); Mean Corpuscular Hemoglobin 31.6 pg (27.0-31.2); Mean Corpuscular Volume 90.6 fl (80-94); Monocytes # 0.6 K/mm3 (0.1-1.0); Neutrophils # 6.3 K/mm3 (1.8-7.8); Neutrophils % 66.5 % (37.0-80.0); Platelet Count 294 K/mm3 (142-424); Red Blood Count 5.04 M/mm3 (4.60-6.20); Red Cell Distribution Width 12.9 % (11.5-17.5); White Blood Count 9.5 K/mm3 (4.8-10.8)
[2023-11-18 15:48] LABS: Appearance,Urine CLEAR (Clear); Bilirubin,Urine Negative (Negative); Blood, Urine Negative (Negative); Color,Urine YELLOW (Yellow); Glucose,Urine (UA) Negative (Negative); Ketones,Urine Negative (Negative); Leukocyte Esterase,Urine Negative (Negative); Nitrate,Urine Negative (Negative); Protein,Urine Negative (Negative); Sodium 138 mmol/L (136-145); Specific Gravity, Urine 1.015 (1.005-1.030); Urobilinogen,Urine 0.2 EU/dl (0.2)
[2023-11-18 15:50] LABS: Alanine Aminotransferase 47 U/L (12-78); Alkaline Phosphatase 97 U/L (38-126); Aspartate Amino Transferase 36 U/L (17-59); Bilirubin,Total 0.7 mg/dl (0.2-1.3); Blood Urea Nitrogen 9 mg/dl (9-20); Creatinine Clearance Estimated 125 mL/min (50-200); Estimated Glomerular Filt Rate 73 ml/min (>60); GFR (African American) 88 ML/MIN (>60)
[2023-11-18 15:51] LABS: Albumin Level 4.8 g/dl (3.5-5.0); Albumin/Globulin Ratio 1.3 (1.1-1.8); Calcium 9.2 mg/dl (8.4-10.2); Carbon Dioxide 31 mmol/L (22.0-30.0); Globulin 3.8 g/dL (1.3-3.2); Glucose 112 mg/dl (74-100); Lipase 147 U/L (23-300); Total Protein,Serum 8.6 g/dl (6.3-8.2)
[2023-11-18] MEDS: IOPAMIDOL-370 (76%);100ML BOTTLE 75 ML IV (15:52)
[2023-11-18] MEDS: SODIUM CHLORIDE 0.9% 10ML SYR (RAD ONLY) 10 ML IV (15:52)
--- NOTE | 2023-11-18 15:52 | HMH.EDGENADL ---
Discharge Plan Disposition Patient Disposition: Home, Self-Care Prescriptions Prescriptions: No Action levofloxacin [levofloxacin] 500 mg tablet 500 mg PO DAILY Qty: 7 0RF mupirocin 2 % ointment 1 applic topical TID 7 Days Qty: 15 0RF benzonatate [benzonatate] 100 mg capsule 100 mg PO TIDP PRN (Reason: Cough) Qty: 30 0RF Referrals Follow up/Referrals: Casper Webb MD [Primary Care Provider] - See instructions Activity Restrictions/Add. Instructions Additional Instructions/Restrictions: There is no specific diagnosis that explains your symptoms today. Your blood cultures and your full respiratory viral panel are pending. Everything else was unremarkable aside from an incidental pulmonary nodule that was 6 mm on the right middle lobe that needs to be observed by her primary care doctor but is of low concern. Lastly follow-up with Dr. Rahman and return to the emergency department with any worsening symptoms. You may call this evening to get the results of your respiratory viral panel. Clinical Impressions Clinical Impression: Bilateral flank pain, Fatigue, Chills, Abdominal pain, Incidental pulmonary nodule Instructions Patient Instructions: DI for Acute Abdominal Pain Discharge ED Provider: Lili Callaway General Adult HPI General Chief complaint: Abdominal Pain Stated complaint: pain in sides and back, abdominal tenderness, fati Time Seen by Provider: 11/18/23 15:23 Mode of Arrival: Ambulatory Source of Information: Patient Limitations: No Limitations Description of Symptoms (Recalled from ER Triage Doc. by RN): pt c/o bilateral flank pain and generalized abd pain. pt states this all began when he was feeling fatigued on 11/10. pt states he was seen by his PCP on 11/16, and 11/14 in the [facility]. pt states he had negative covid/flu/strep tests. pt states he had blood work drawn on 11/16 but does not have the results. pt also c/o nausea, denies V/D. History of Present Illness HPI narrative: Patient is a 43-year-old male presenting today with bilateral flank pain radiating into his abdomen. States that he has been feeling sick for a little over 1 week. Started feeling fatigued last weekend which is profound he is typically very energetic and this worsened over the last several days prior to feeling significant pain in the middle of last Sunday. That pain initially was intermittent to bilateral flanks nonlocalizing nonlateralizing and now has been to the point where it has been constant over the last 24 hours. States that he recently returned from [place] and had severe pain this been constant the last 15 [address] straight to the emergency department. Denies any urinary symptoms burning frequency urgency or blood in his urine. No history of kidney stones. No changes in bowel movements. Has had some chronic diarrhea at times. No blood in stool. Had 2 physician visits earlier in the week went to urgent treatment clinic on Sunday where he had a negative COVID and flu and strep also had a urinalysis test and some blood work done at Dr. Rahman's office and was not told anything was abnormal but does not her definitively. Patient also states he had some chills but had no objective temperature greater than 100. Denies any other past medical problems. Related Data Previous Rx's Medication Instructions Recorded benzonatate 100 mg capsule 100 mg PO TIDP PRN Cough #30 caps 11/14/23 levofloxacin 500 mg tablet 500 mg PO DAILY #7 tabs 11/14/23 mupirocin 2 % topical ointment 1 applic topical TID 7 days #15 11/14/23 grams Allergies Allergy/AdvReac Type Severity Reaction Status Date / Time No Known Allergies Allergy Verified 11/18/23 15:38 [facility] Disclaimer: The information contained in this section may have been updated after the patient was seen, as this information can be updated by other users. Social History Smoking Status: Never smoker alcohol intake: current substance use type: denies use current occupational status: employed Travel in the last 8 weeks: None household members: spouse and children ROS Obtained: Yes All systems reviewed & no additional complaints except as documented Physical Exam General General appearance: alert Respiratory Respiratory exam: Present normal lung sounds bilaterally Cardiovascular Cardiovascular exam: Present regular rate Abdominal Exam Abdominal exam: Present soft; Absent distention or tenderness Back Exam Back exam: Present normal inspection; Absent CVA tenderness (R) or CVA tenderness (L) Neurological Exam Neurological exam: Present alert Medical Decision Making Nicholas Inquiry Pt receiving controlled substance: No Vital Signs: 11/18/23 15:27 11/18/23 15:24 11/18/23 15:40 Temperature 98.4 F Temperature Source Oral Pulse Rate 77 68 Pulse Rate [Left] 74 Respiratory Rate 18 Blood Pressure 157/92 H 164/94 H Blood Pressure [Right Arm] 157/92 H Blood Pressure Mean [Right Arm] 113 Blood Pressure Source [Right Arm] Automatic Cuff Blood Pressure Position [Right Arm] Sitting 02 Sat by Pulse Oximetry 99 99 98 Oxygen Delivery Method Room Air Room Air Room Air Lab Data Lab results reviewed: Yes I reviewed the patient's lab results. Lab Results 11/18/23 15:25: WBC 9.5, RBC 5.04, Hgb 15.9, Hct 45.6, MCV 90.6, MCH 31.6 H, MCHC 34.9, RDW 12.9, Plt Count 294, MPV 8.0, Neut % (Auto) 66.5, Lymph % (Auto) 26.2, Morgan % (Auto) 6.0, Eos % (Auto) 0.8, Baso % (Auto) 0.5, Neut # (Auto) 6.3, Lymph # (Auto) 2.5, Morgan # (Auto) 0.6, Eos # (Auto) 0.1, Baso # (Auto) 0.1, Sodium 138, Potassium 4.0, Chloride 103, Carbon Dioxide 31 H, Anion Gap 8.0, BUN 9, Creatinine 1.10, Estimated Creat Clear 125, Estimated GFR 73, Est GFR ( Amer) 88, Glucose 112 H, Calcium 9.2, Total Bilirubin 0.7, AST 36, ALT 47, Alkaline Phosphatase 97, Total Protein 8.6 H, Albumin 4.8, Globulin 3.8 H, Albumin/Globulin Ratio 1.3, Lipase 147, Urine Color Yellow, Urine Appearance Clear, Urine pH 7.0, Ur Specific [place] 1.015, Urine Protein Negative, Urine Glucose (UA) Negative, Urine Ketones Negative, Urine Blood Negative, Urine Nitrate Negative, Urine Bilirubin Negative, Urine Urobilinogen 0.2, Ur Leukocyte Esterase Negative, Urine RBC None, Urine WBC None, Ur Squamous Epith Cells Occasional, Urine Bacteria None, Monoscreen Negative 11/18/23 15:25 11/18/23 15:25 Orders (Tests/Meds): ED MEDICATIONS Generic Name Dose Route Start Last Admin Trade Name Freq PRN Reason Stop Dose Admin Sodium Chloride 10 ml 11/18/23 15:51 11/18/23 15:52 Sodium Chloride 0.9% 10ml Syr (Rad Only) IV 12/18/23 15:50 10 ml NEEDED PRN Administration Maintain IV Site Discontinued Medications Generic Name Dose Route Start Last Admin Trade Name Eddq PRN Reason Stop Dose Admin Lactated Ringer's 1,000 mls @ 999 mls/hr 11/18/23 15:45 11/18/23 15:41 Lactated Ringer's 1000 Ml Bag IV 11/18/23 16:45 999 mls/hr .Q1H1M LAISHA Administration Iopamidol 75 ml 11/18/23 15:51 11/18/23 15:52 Iopamidol-370 (76%);100ml Bottle IV 11/18/23 15:52 75 ml ONCE ONE Administration Ketorolac Tromethamine 15 mg 11/18/23 15:36 11/18/23 15:42 Ketorolac 30mg/Ml Vial IV 11/18/23 15:37 15 mg ONCE ONE Administration Ondansetron HCl 4 mg 11/18/23 15:36 11/18/23 15:42 Ondansetron 4mg/2ml Vial IV 11/18/23 15:37 4 mg ONCE ONE Administration ORDERS Category Date Time Status CT abdomen pelvis w con Stat Cat Scan 11/18/23 15:36 Completed CBC w/Auto Diff [Complete Blood Count Auto Diff] Stat Lab 11/18/23 15:25 Completed CMP [Comprehensive Metabolic Panel] Stat Lab 11/18/23 15:25 Completed Full Resp Panel w/COVID ([facility]) Routine Lab 11/18/23 16:08 Received Lipase Stat Lab 11/18/23 15:25 Completed Monoscreen (Rapid) Stat Lab 11/18/23 15:25 Completed UA [Urinalysis and Microscopic] Stat Lab 11/18/23 15:25 Completed Blood Culture Stat Micro 11/18/23 16:07 Received Medical Decision Narrative: Well-appearing 43-year-old male with normal vitals presenting today with nonspecific symptoms. However this is his third physician visit in the last week given the fact that his symptoms are not significantly improving will escalate workup to include infectious workup for viruses, mono, blood cultures do a CT scan of the abdomen pelvis and basic lab work will also give the patient IV fluids and pain medicine nausea medicine. Differential includes bilateral nephrolithiasis, pyelonephritis, malignancy, viral pain with myositis, musculoskeletal back strain, bowel obstruction, constipation etc. Will reassess after his workup is complete. Reassessment 5:32 PM serial exams are benign patient is very well-appearing. I reviewed the labs as well as the CT scan personally no obvious abdominal pelvic emergency found on CT scan. On radiology read there is some punctate renal stones that are not causing any hydronephrosis or hydroureter. These are insignificant he also has no dysuria or infection. Labs otherwise unremarkable. Respiratory viral panel is pending as well as blood cultures. He has been advised to follow-up with Dr. Rahman. I suspect his symptoms are still most likely viral in nature with associated musculoskeletal myalgias. He has been advised to take Tylenol and ibuprofen to follow-up with primary care doctor and to return the emergency part with any worsening symptoms. If his symptoms persist I advised that he likely should get an outpatient endoscopy and colonoscopy as next steps. He was discharged in a stable condition with significant diagnostic uncertainty persisting which she is aware of but at this point is not consistent with a surgical emergency or any emergent medical condition. With any worsening or new or different symptoms he will return to the emergency department. Critical Care Critical Care Time Critical Care Time: No
[2023-11-18 16:02] LABS: Monoscreen (Rapid) Negative (Negative)
[2023-11-18 16:05] LABS: Squamous Epithelial Cell,Urine Occasional #/hpf (0-5)
[2023-11-18 16:19] LABS: Adenovirus,PCR Not Detected (NotDetected); Coronavirus 19, PCR Not Detected (NotDetected); Coronavirus 229E Not Detected (NotDetected); Coronavirus NL63 Not Detected (NotDetected); Coronavirus OC43 Not Detected (NotDetected); Coronovirus HKU1,PCR Not Detected (NotDetected); Human Metapneumovirus Not Detected (NotDetected); Influenza A, PCR Not Detected (NotDetected); Influenza AH1, 2009 Not Detected (NotDetected); Influenza AH1, PCR Not Detected (NotDetected); Influenza AH3,PCR Not Detected (NotDetected); Influenza B, PCR Not Detected (NotDetected); Parainfluenza 1, PCR Not Detected (NotDetected); Parainfluenza 2, PCR Not Detected (NotDetected); Parainfluenza 3, PCR Not Detected (NotDetected); Parainfluenza 4, PCR Not Detected (NotDetected); Respiratory Syncytial Virus Not Detected (NotDetected); Rhinovirus/Enterovirus Not Detected (NotDetected)
[2023-11-18 18:02] VITALS: BP 132/90; PULSE 70; RESP 16; TEMP 36.8
== END 2023-11-18 18:04 | disposition home or self-care (01) ==
PROVIDERS: Emergency Provider Student in an Organized Health Care Education/Training Program; PCP Internal Medicine Adolescent Medicine
DX: R10.84 Generalized abdominal pain (principal); R53.83 Other fatigue; R91.1 Solitary pulmonary nodule; R11.0 Nausea
CPT/HCPCS: 74177; 80053; 81001; 83690; 85025; 86318; 87040; 87632; 87635; 96361; 96374; 96375; 99285; J2405; Q9967

== ENCOUNTER 2023-11-22 17:14 | Outpatient (CLI) | payer BC, SELFPAY ==
[2023-11-22 18:08] LABS: Campylobacter Not Detected (NotDetected); Clostridium Difficile A/B, PCR Not Detected (NotDetected); Plesimonas Shigalloides, PCR Not Detected (NotDetected)
[2023-11-26 07:24] LABS: Adenovirus F 40/41, stool Not Detected (NotDetected); Astrovirus Not Detected (NotDetected); Cryptosporidium Not Detected (NotDetected); Cyclospora Cayetanesis Not Detected (NotDetected); Entamoeba histolytica Not Detected (NotDetected); Enteroaggregative E coli Not Detected (NotDetected); Enteropathogenic E coli Not Detected (NotDetected); Enterotoxigenic E coli Not Detected (NotDetected); Giardia lamblia Not Detected (NotDetected); Norovirus Not Detected (NotDetected); Rotavirus A Not Detected (NotDetected); Salmonella, PCR Not Detected (NotDetected); Sapovirus Not Detected (NotDetected); Shiga-like toxin E coli Not Detected (NotDetected); Shigella Enterovasive E coli Not Detected (NotDetected); Vibrio Cholerae Not Detected (NotDetected); Vibrio, PCR Not Detected (NotDetected); Yersinia Entercolitica, PCR Not Detected (NotDetected)
== END 2023-11-22 23:59 ==
LOC: LAB.DROPOF 17:16
PROVIDERS: PCP Internal Medicine Adolescent Medicine; Visit Provider Surgery
DX: R19.7 Diarrhea, unspecified (principal)
CPT/HCPCS: 87506

== ENCOUNTER 2024-02-06 11:55 | Day surgery (SDC) | payer BC, SELFPAY ==
[2024-02-05 08:23] VITALS: BMI 28.7
[2024-02-06 12:30] VITALS: BP 131/69; PULSE 58; RESP 18; TEMP 36.3; O2SAT 97; BMI 28.7
[2024-02-06] MEDS: LACTATED RINGERS 1000ML 1,000 ML 25 ML IV (12:37)
--- NOTE | 2024-02-06 13:14 | P.PNANES_ITS ---
[facility] Disclaimer: The information contained in this section may have been updated after the patient was seen, as this information can be updated by other users. Medical History Pneumonia History of COVID-19 Eczema History of gastroesophageal reflux (GERD) Hyperlipidemia Surgical History History of surgical removal of pilonidal cyst History of tonsillectomy and adenoidectomy Family History Other Family history of cancer Social History Smoking Status: Never smoker alcohol intake: current alcohol intake frequency: holidays/special occasions only substance use type: denies use current occupational status: employed Travel in the last 8 weeks: None household members: spouse and children [facility] Anesthesia Checklist Patient Identification Patient Identification: Arm Band and Verbal (Name & ) Structural Data Admitted From: Home Planned Operative Procedure/s: EGD/Colonoscopy Consent for Planned Operative Procedure(s) Verified: Yes NPO Status Verified Time NPO: 00:00 Additional verifications Anesthesia Reactions: No Airway Assessment Mallampati Score:: Class II C-Spine Mobility Assessed: Yes Dentition: Good Dentition Neurological Assessment Level of Consciousness: Awake Hx Seizures: No Numbness or tingling in extremities: No Anesthesia Plan Anesthesia Risk discussed: Yes Anesthesia Plan: Verified ASA Class: II Anesthesia Type: MAC
[2024-02-06 13:43] VITALS: O2SAT 100
[2024-02-06 14:00] VITALS: BP 113/72; PULSE 62; RESP 16; TEMP 36.3; O2SAT 98
--- NOTE | 2024-02-06 14:00 | [facility].SCOPE ---
Procedure: Date: 02/06/24 Patient Date of :: 1980 Procedure Performed:: EGD Indications:: The patient is a 43-year-old who presents for EGD evaluation of recent abdominal pain and diarrhea. The patient reports that the symptoms have resolved. Performing Provider:: Mendoza Hayden MD Referring Provider:: Jun Webb MD Sedation:: See RN records Procedure:: The gastroscope was gently passed through the incisoral orifice into the oral cavity and under direct visualization the esophagus was intubated. The endoscope was passed down the esophagus, through the stomach, and into the duodenum. Color, texture, mucosa, and anatomy of the esophagus, stomach, and duodenum were carefully examined with the scope. Findings:: The esophagus appeared normal. Z-line was measured at 40 cm. The examined stomach appeared normal. Duodenum appeared normal. Recommendations:: Reassuring examination Complications:: None Estimated blood obtained (mL): 0 Colonoscopy Component Colonoscopy Component Was a colonoscopy performed during today's procedure?: No
--- NOTE | 2024-02-06 14:02 | [facility].SCOPE ---
Procedure: Date: 02/06/24 Patient Date of :: 1980 Procedure Performed:: Colonoscopy Indications:: The patient is a 43-year-old who presents for screening colonoscopy for colorectal cancer. There is a family history of colon polyps in his father and colon cancer in paternal grandfather. Patient also had a recent illness with abdominal pain and diarrhea. Stool studies were unremarkable for infectious pathogens. The patient's symptoms have resolved. Performing Provider:: Mendoza Hayden MD Referring Provider:: Jun Webb MD Sedation:: See RN records Procedure:: After placing the patient in the left lateral decubitus position, the colonoscopy was gently inserted into the rectum and under direct visualization advanced to the cecum which was identified by transillumination in the right lower quadrant, identification of the ileocecal valve, appendiceal orifice, and cecal strap. Color, texture, mucosa, and anatomy of the colon were carefully examined with the scope. Findings:: The quality of the bowel preparation was excellent. There was a diminutive (1 to 3 mm) sized polyp in the sigmoid colon. Polyp was removed with a cold forceps. The remaining colon appeared normal. On retroflexion view the rectum appeared normal. Impression: Polyp of sigmoid colon Recommendations:: Await pathology results Repeat colonoscopy in 5 years Complications:: None Estimated blood obtained (mL): 0 Colonoscopy Component Colonoscopy Component Was a colonoscopy performed during today's procedure?: Yes Recommended follow up colonoscopy of at least 10 years?: Yes
[2024-02-06 14:10] VITALS: BP 110/68; PULSE 55; RESP 18; TEMP 36.3; O2SAT 98
[2024-02-06 14:23] VITALS: BP 108/71; PULSE 62; RESP 16; O2SAT 98
== END 2024-02-06 14:23 | disposition home or self-care (01) ==
PROVIDERS: PCP Internal Medicine Adolescent Medicine; Visit Provider Internal Medicine
PROC: 0DJ08ZZ Inspection of Upper Intestinal Tract, Via Natural or Artificial Opening Endoscopic (ICD-10-PCS; CPT 43235; principal; 2024-02-06 13:00)
DX: R10.9 Unspecified abdominal pain (principal); R19.7 Diarrhea, unspecified; Z12.11 Encounter for screening for malignant neoplasm of colon; Z80.0 Family history of malignant neoplasm of digestive organs; K63.5 Polyp of colon
CPT/HCPCS: 43235; 45380

== ENCOUNTER 2025-02-26 15:00 | Outpatient (CLI) | payer BC, SELFPAY ==
--- NOTE | 2025-02-26 15:03 | CT_ITS ---
FINAL REPORT TECHNIQUE: The patient was injected with IV contrast. Axial images were obtained of the chest by computed tomography. Precontrast images were also obtained. This study was performed with techniques to keep radiation doses as low as reasonably achievable (ALARA). Individualized dose reduction techniques using automated exposure control or adjustment of mA and/or kV according to the patient's size were employed. CLINICAL HISTORY: LUNG NODULE COMPARISON: CT abdomen and pelvis 11/18/2023 FINDINGS: CT OF THE CHEST WITH AND WITHOUT CONTRAST: The mediastinal vasculature is adequately opacified. Bilateral axillary lymph nodes measuring up to 2 cm are larger than typically seen. Heart size is normal. There is no pericardial or pleural effusion identified. There is a stable pleural-based density in the right middle lobe measuring 6 mm on image 63 of series 4. Limited images of the upper abdomen are unremarkable. IMPRESSION: Stable right middle lobe nodule. Reviewed, Interpreted and Dictated by Braden Agustin MD Transcribed by Sherrie Orona Authenticated and [facility]
[2025-02-26] MEDS: SODIUM CHLORIDE 0.9% 10ML SYR (RAD ONLY) 10 ML IV (15:24)
[2025-02-26] MEDS: IOPAMIDOL-370 (76%);100ML BOTTLE 75 ML IV (15:24)
== END 2025-02-26 23:59 | disposition home or self-care (01) ==
LOC: RAD 15:01
PROVIDERS: PCP Internal Medicine Adolescent Medicine; Visit Provider Physician Assistant
DX: R91.1 Solitary pulmonary nodule (principal)
CPT/HCPCS: 71270; Q9967